=== PATIENT | female | born 1930 | race Caucasian/White ===

== ENCOUNTER 2017-05-25 22:12 | Inpatient (IN) | payer MEDICARE ==
[~2017-05-25] VITALS: Ht 160 cm; Wt 81.8 kg
[2017-05-25 23:02] VITALS: BP 145/66
[2017-05-26] MEDS ORDERED: ACETAMINOPHEN 325 MG TABLET PO PRN (00:30)
[2017-05-26] MEDS ORDERED: POLYETHYLENE GLYCOL 17 GM PACKET PO PRN (00:30)
[2017-05-26] MEDS ORDERED: morphine SULFATE 10 MG/ML, 1ML IVPush PRN (00:30)
[2017-05-26] MEDS ORDERED: ONDANSETRON 2MG/ML, 2ML IVPush PRN (00:30)
[2017-05-26] MEDS ORDERED: BISACODYL 10 MG SUPP PR PRN (00:30)
[2017-05-26] MEDS ORDERED: NITROGLYCERIN 0.4 MG BOTTLE (25 TABS) SL PRN (00:30)
[2017-05-26] MEDS: AZITHROMYCIN 500 MG in SODIUM CHLORIDE 0.9% 250 ML IV SCH (00:43)
[2017-05-26] MEDS: HEPARIN 5,000 UNITS/ML, 1ML SQ SCH ×3 (00:43→17:28)
[2017-05-26 01:29] LABS: TROPONIN I 0.156 ng/mL (0.000-0.045)
[2017-05-26 01:33] LABS: HEMOGLOBIN A1C 7.6 % (4.2-6.3)
[2017-05-26 04:00] VITALS: BP 130/76
[2017-05-26] MEDS: ASPIRIN 81 MG TABLET EC PO SCH (05:49)
[2017-05-26 06:16] LABS: BASOPHILS # (AUTO) 0.01 x10^3/uL (0-0.1); BASOPHILS % (AUTO) 0 % (0-1); EOSINOPHILS # (AUTO) 0.01 x10^3/uL (0-0.4); EOSINOPHILS % (AUTO) 0 % (1-7); LYMPHOCYTES # (AUTO) 1.71 x10^3/uL (1-3.4); LYMPHOCYTES % (AUTO) 22 % (22-44); MD NO; MEAN CORPUSCULAR HEMOGLOBIN 31.8 pg (27.0-34.8); MEAN CORPUSCULAR HGB CONC 33.8 g/dL (32.4-35.8); MEAN CORPUSCULAR VOLUME 94.1 fL (80-100); MEAN PLATELET VOLUME 8.1 fL (7.4-10.4); MONOCYTES # (AUTO) 0.89 x10^3/uL (0.2-0.8); MONOCYTES % (AUTO) 11 % (2-9); NEUTROPHILS # (AUTO) 5.32 x10^3/uL (1.8-6.8); NEUTROPHILS % (AUTO) 67 % (42-75); PLATELET COUNT 119 x10^3/uL (130-400); RED BLOOD COUNT 4.08 x10^6/uL (3.82-5.3)
[2017-05-26 06:28] LABS: ALANINE AMINOTRANSFERASE 23 U/L (12-78); ALBUMIN 2.9 g/dL (3.4-5.0); ANION GAP 9 mmol/L (5-15); CALCIUM 8.1 mg/dL (8.5-10.1); CHLORIDE 102 mmol/L (98-107); CREATININE 1.53 mg/dL (0.55-1.02)
[2017-05-26 06:32] LABS: ALKALINE PHOSPHATASE 102 U/L (45-117); BILIRUBIN,TOTAL 0.4 mg/dL (0.2-1.0); TOTAL PROTEIN 6.3 g/dL (6.4-8.2); TROPONIN I 0.128 ng/mL (0.000-0.045)
[2017-05-26 08:00] VITALS: BP 128/89
[2017-05-26] MEDS: SENNA/DOCUSATE TABLET PO SCH (09:00)
[2017-05-26] MEDS: SODIUM CHLORIDE FLUSH 10ML SYR IVF SCH ×2 (09:18→22:16)
[2017-05-26] MEDS ORDERED: diabetic medication PO (12:28)
[2017-05-26] MEDS ORDERED: AMLO5TAB2 PO (12:28)
[2017-05-26] MEDS ORDERED: TELM1TAB26 PO (12:28)
[2017-05-26] MEDS ORDERED: POTA20TA14 PO (12:28)
[2017-05-26] MEDS ORDERED: METO100T5 PO (12:28)
[2017-05-26] MEDS ORDERED: CHOL100011 PO (12:28)
[2017-05-26] MEDS ORDERED: CYAN100014 PO (12:28)
[2017-05-26] MEDS ORDERED: OMEG1CAP23 PO (12:28)
[2017-05-26] MEDS ORDERED: ROSU10TA PO (12:28)
[2017-05-26] MEDS ORDERED: ASPI-621 PO (12:28)
[2017-05-26] MEDS ORDERED: LEVO75TA5 PO (12:28)
[2017-05-26] MEDS ORDERED: PRIM50TA PO (12:28)
[2017-05-26] MEDS ORDERED: BUME1TAB21 PO (12:28)
[2017-05-26] MEDS ORDERED: TRAM50TA2 PO (12:28)
[2017-05-26 14:27] VITALS: BP 159/72
[2017-05-26] MEDS: PRIMIDONE 50 MG TABLET PO SCH ×2 (18:52→22:17)
[2017-05-26 20:17] VITALS: BP 150/81
[2017-05-26] MEDS: GUAIFENESIN/DM 200-20MG, 10ML UDC PO PRN (22:47)
[2017-05-27] MEDS: AZITHROMYCIN 500 MG in SODIUM CHLORIDE 0.9% 250 ML IV SCH (01:13)
[2017-05-27] MEDS: HEPARIN 5,000 UNITS/ML, 1ML SQ SCH ×3 (01:14→21:32)
[2017-05-27 02:37] VITALS: BP 134/74
[2017-05-27] MEDS: ASPIRIN 81 MG TABLET EC PO SCH (05:57)
[2017-05-27] MEDS: GUAIFENESIN/DM 200-20MG, 10ML UDC PO PRN ×3 (05:58→21:41)
[2017-05-27 06:12] LABS: CHOL/HDL RATIO 4.2; LDL/HDL RATIO 2.2 (0.5-3.0)
[2017-05-27 07:17] LABS: ALBUMIN 2.7 g/dL (3.4-5.0); ANION GAP 7 mmol/L (5-15); CALCIUM 7.4 mg/dL (8.5-10.1); CHLORIDE 103 mmol/L (98-107)
[2017-05-27 07:22] LABS: ALANINE AMINOTRANSFERASE 18 U/L (12-78); ALKALINE PHOSPHATASE 86 U/L (45-117); BILIRUBIN,TOTAL 0.4 mg/dL (0.2-1.0); CREATININE 1.25 mg/dL (0.55-1.02); TOTAL PROTEIN 5.8 g/dL (6.4-8.2); TROPONIN I 0.054 ng/mL (0.000-0.045)
[2017-05-27 08:06] VITALS: BP 124/74
[2017-05-27] MEDS ORDERED: POTASSIUM CHLORIDE 20 MEQ TAB.ER.PRT PO ONE (08:30)
[2017-05-27] MEDS: SENNA/DOCUSATE TABLET PO SCH (09:00)
[2017-05-27] MEDS: PRIMIDONE 50 MG TABLET PO SCH ×6 (09:00→21:30)
[2017-05-27] MEDS ORDERED: ASPIRIN 81 MG TABLET EC PO SCH (09:00)
[2017-05-27 09:27] LABS: MEAN CORPUSCULAR HEMOGLOBIN 31.6 pg (27.0-34.8); MEAN CORPUSCULAR HGB CONC 33.3 g/dL (32.4-35.8); MEAN CORPUSCULAR VOLUME 95.1 fL (80-100); MEAN PLATELET VOLUME 8.5 fL (7.4-10.4); PLATELET COUNT 115 x10^3/uL (130-400); RED BLOOD COUNT 3.83 x10^6/uL (3.82-5.3); RED CELL DISTRIBUTION WIDTH 15.2 % (9.6-15.2)
[2017-05-27 09:37] LABS: BASOPHILS # (AUTO) 0.01 x10^3/uL (0-0.1); BASOPHILS % (AUTO) 0 % (0-1); EOSINOPHILS # (AUTO) 0.04 x10^3/uL (0-0.4); EOSINOPHILS % (AUTO) 1 % (1-7); LYMPHOCYTES # (AUTO) 1.82 x10^3/uL (1-3.4); LYMPHOCYTES % (AUTO) 44 % (22-44); MD SCAN; MONOCYTES % (AUTO) 17 % (2-9); NEUTROPHILS # (AUTO) 1.54 x10^3/uL (1.8-6.8); NEUTROPHILS % (AUTO) 37 % (42-75)
[2017-05-27] MEDS: SODIUM CHLORIDE FLUSH 10ML SYR IVF SCH ×2 (11:08→21:29)
[2017-05-27] MEDS: POTASSIUM CHLORIDE 20 MEQ TAB.ER.PRT PO SCH (11:09)
[2017-05-27 14:09] VITALS: BP 154/81
[2017-05-27 20:29] VITALS: BP 147/84
[2017-05-27] MEDS ORDERED: BUMETANIDE 1 MG TABLET PO SCH (21:00)
[2017-05-27] MEDS ORDERED: LEVOTHYROXINE 75 MCG TABLET PO SCH (21:00)
[2017-05-27] MEDS ORDERED: METOPROLOL SUCCINATE 100 MG TAB.ER.24H PO SCH (21:00)
[2017-05-28] MEDS: AZITHROMYCIN 500 MG in SODIUM CHLORIDE 0.9% 250 ML IV SCH (01:12)
[2017-05-28 02:23] VITALS: BP 143/78
[2017-05-28] MEDS: ASPIRIN 81 MG TABLET EC PO SCH (04:54)
[2017-05-28] MEDS: HEPARIN 5,000 UNITS/ML, 1ML SQ SCH ×2 (04:54→11:42)
[2017-05-28 07:10] VITALS: BP 147/85
[2017-05-28 07:45] LABS: ANION GAP 5 mmol/L (5-15); CHLORIDE 106 mmol/L (98-107)
[2017-05-28 07:46] LABS: CREATININE 0.97 mg/dL (0.55-1.02)
[2017-05-28] MEDS ORDERED: DOXY100T10 PO (07:54)
[2017-05-28] MEDS: SENNA/DOCUSATE TABLET PO SCH (09:00)
[2017-05-28] MEDS: POTASSIUM CHLORIDE 20 MEQ TAB.ER.PRT PO SCH (09:25)
[2017-05-28] MEDS: PRIMIDONE 50 MG TABLET PO SCH (09:25)
[2017-05-28] MEDS: SODIUM CHLORIDE FLUSH 10ML SYR IVF SCH (09:26)
[2017-05-28 13:48] VITALS: BP 128/76
== END 2017-05-28 14:40 | disposition home or self-care (01) | DRG 682 ==
LOC: 5SO 22:47 → 4NOR 05-28 06:00 → DCLOUNGE 05-28 14:39
PROVIDERS: ADMIT Internal Medicine; ATTEND Internal Medicine
DX: N17.0 Acute kidney failure with tubular necrosis (principal); E43 Unspecified severe protein-calorie malnutrition; J96.21 Acute and chronic respiratory failure with hypoxia; I11.0 Hypertensive heart disease with heart failure; J18.9 Pneumonia, unspecified organism; E11.9 Type 2 diabetes mellitus without complications; I50.32 Chronic diastolic (congestive) heart failure; Z99.81 Dependence on supplemental oxygen; J98.11 Atelectasis; I35.0 Nonrheumatic aortic (valve) stenosis; I70.1 Atherosclerosis of renal artery; I44.7 Left bundle-branch block, unspecified; E03.9 Hypothyroidism, unspecified; E55.9 Vitamin D deficiency, unspecified; E78.5 Hyperlipidemia, unspecified; H35.30 Unspecified macular degeneration; M19.90 Unspecified osteoarthritis, unspecified site; Z66 Do not resuscitate; Z82.3 Family history of stroke; Z82.49 Family history of ischemic heart disease and other diseases of the circulatory system; Z68.31 Body mass index [BMI] 31.0-31.9, adult; Z90.710 Acquired absence of both cervix and uterus; Z90.49 Acquired absence of other specified parts of digestive tract; Z90.89 Acquired absence of other organs; Z88.8 Allergy status to other drugs, medicaments and biological substances; Z88.1 Allergy status to other antibiotic agents; Z91.018 Allergy to other foods
CPT/HCPCS: 36415; 71010; 80048; 80053; 80061; 83036; 83735; 84484; 85025; 93306; J0456; J1644; J7050